=== PATIENT | male | born 1985 | race Caucasian/White ===

== ENCOUNTER 2016-09-16 06:59 | Emergency (ER) | payer SELFPAY ==
[2016-09-16 08:46] VITALS: BP 135/76
== END 2016-09-16 08:46 | disposition home or self-care (01) ==
LOC: ED 06:59
DX: M54.5 Low back pain (principal)
CPT/HCPCS: J1885

== ENCOUNTER 2017-08-15 08:09 | Emergency (ER) | payer SELFPAY ==
[~2017-08-15] VITALS: Ht 180.3 cm; Wt 82.5 kg
[2017-08-15 08:14] VITALS: BP 144/71; Ht 180.3 cm; Wt 82.5 kg
== END 2017-08-15 09:27 | disposition home or self-care (01) ==
LOC: ED 08:09
DX: S61.012D Laceration without foreign body of left thumb without damage to nail, subsequent encounter (principal); Z86.73 Personal history of transient ischemic attack (TIA), and cerebral infarction without residual deficits; X58.XXXD Exposure to other specified factors, subsequent encounter